=== PATIENT | female | born 1975 | race Caucasian/White ===

== ENCOUNTER 2019-11-30 13:30 | Emergency (ER) | payer OTHER ==
[~2019-11-30 13:30] MED LIST: DOXYCYCLINE100 MG PO; Flagyl500 M1 PO; PERCOCET 325 MG1 TA7 PO; ZANTAC150 MG PO; ZOFRAN ODT4 MG SL
[2019-11-30 14:36] LABS: BASO % 0.2 % (0.0-1.0); EOS % 0.1 % (1.0-4.0); LYMPH # 0.9 10*3/uL (1.3-4.4); LYMPH % 10.3 % (27.0-41.0); MEAN CELL VOLUME 94.4 fl (81.0-99.0); MEAN CORPUSCULAR HGB 30.4 pg (27.0-31.0); MEAN CORPUSCULAR HGB CONC 32.2 g/dl (33.0-37.0); MEAN PLATELET VOLUME 9.3 fl (9.6-12.3); MONO % 0.4 % (3.0-9.0); NEUT # 7.4 10*3/uL (2.3-7.9); NEUT % 88.9 % (47.0-73.0); PLATELET COUNT AUTOMATED 233 10*3/uL (130-400); RED BLOOD COUNT 3.92 10*6/uL (4.10-5.10); RED CELL DISTRI WIDTH 12.1 % (0-14.5); WHITE BLOOD COUNT 8.4 10*3/uL (4.8-10.8)
[2019-11-30 14:52] LABS: ALBUMIN 4.2 gm/dl (3.1-4.5); ALKALINE PHOSPHATASE 134 U/L (45-117); BUN 10 mg/dl (7-24); CHLORIDE 106 mmol/L (98-107); CREATININE 0.73 mg/dL (0.55-1.02); POTASSIUM 3.9 mmol/L (3.5-5.1); SGOT/AST 10 IU/L (3-35); SGPT/ALT 30 U/L (12-78); SODIUM 140 mmol/L (136-145); TOTAL PROTEIN 8.5 gm/dL (6.4-8.2)
[2019-11-30 14:55] LABS: TROPONIN I < 0.015 ng/ml (<0.045)
[2019-11-30 17:10] LABS: BILIRUBIN NEGATIVE; BLOOD NEGATIVE (NEGATIVE); CLARITY CLEAR (CLEAR); COLOR YELLOW (YELLOW); GLUCOSE NEGATIVE; KETONE NEGATIVE; PH 8.5 (4.5-8.0)
[2019-11-30 17:11] LABS: LEUKO ESTERASE NEGATIVE (NEGATIVE); NITRITE NEGATIVE (NEGATIVE); UROBILINOGEN 0.2 E.U./dl (0.0-1.0)
[2019-11-30 17:15] LABS: BACTERIA TRACE; EPITHELIAL CELLS 0-2; RBC 0-2 rbc/hpf (0-2); WBC 0-2 wbc/hpf (0-5)
[2019-11-30] MEDS ORDERED: IBU800 MG PO (17:27)
[2019-11-30] MEDS ORDERED: PERCOCET 5-3251 EACH PO (17:27)
== END 2019-11-30 17:19 | disposition home or self-care (01) ==
LOC: ED 13:30
PROVIDERS: Nurse Practitioner Family
DX: S39.012A Strain of muscle, fascia and tendon of lower back, initial encounter (principal); S20.20XA Contusion of thorax, unspecified, initial encounter; Z88.8 Allergy status to other drugs, medicaments and biological substances; Z79.899 Other long term (current) drug therapy; W19.XXXA Unspecified fall, initial encounter; X58.XXXA Exposure to other specified factors, initial encounter; Y93.89 Activity, other specified; Y92.89 Other specified places as the place of occurrence of the external cause; Y99.8 Other external cause status